=== PATIENT | female | born 1990 | race Caucasian/White ===

== ENCOUNTER 2020-03-12 13:35 | Emergency (ER) | payer OTHER, MEDICAID ==
[~2020-03-12] VITALS: Ht 157.5 cm; Wt 127.0 kg
[2020-03-12] MEDS ORDERED: SERTRALINE HCL50 MG PO (13:55)
[2020-03-12] MEDS ORDERED: WELLBUTRIN SR100 MG PO (13:55)
[2020-03-12 14:22] LABS: ABSOLUTE BASOPHILS 0.1 thou/uL (0.0-0.2); ABSOLUTE EOSINOPHILS 0.2 thou/uL (0.0-0.7); ABSOLUTE LYMPHOCYTES 2.4 thou/uL (0.8-5.3); ABSOLUTE MONOCYTES 0.6 thou/uL (0.0-1.2); ABSOLUTE NEUTROPHILS 5.4 thou/uL (1.6-8.1); EOSINOPHILS 2.7 %; HEMATOCRIT 42.4 % (37.0-47.0); HEMOGLOBIN 14.7 gm/dL (12.0-15.0); LYMPHOCYTES 27.4 %; MCH 30.2 pg (26.0-34.0); MCHC 34.6 g/dL (28.0-37.0); MCV 87.4 fL (80.0-100.0); MONOCYTES 6.9 %; MPV 8.8 fl. (7.2-11.1); NUCLEATED RBCS 0 /100WBC; PLATELET COUNT* 253 thou/uL (150-400); RBC 4.85 mil/uL (4.20-5.00); RDW-CV 14.1 % (10.5-14.5); WBC 8.6 thou/uL (4.0-11.0)
[2020-03-12 14:27] LABS: APTT 25.3 Seconds (25.0-31.3); PROTIME 10.4 Seconds (9.20-11.50)
[2020-03-12 14:28] LABS: CALCIUM 8.4 mg/dL (8.5-10.1); CREATININE 0.9 mg/dL (0.6-1.3); POTASSIUM 3.5 mmol/L (3.5-5.1)
[2020-03-12 14:32] LABS: URINE BILIRUBIN NEGATIVE (Negative); URINE BLOOD 3+ (Negative); URINE CLARITY CLOUDY; URINE COLOR RED; URINE GLUCOSE-RANDOM NEGATIVE (Negative); URINE KETONES NEGATIVE (Negative); URINE LEUKOCYTES-REFLEX NEGATIVE (Negative); URINE NITRITE-REFLEX NEGATIVE (Negative); URINE PROTEIN 1+ (Negative); URINE SPECIFIC GRAVITY 1.015 (1.005-1.030); URINE UROBILINOGEN 0.2 E.U./dl (0.2-1.0)
[2020-03-12 14:38] LABS: ALBUMIN 3.1 g/dL (3.4-5.0); TOTAL BILIRUBIN 0.2 mg/dL (<0.1-1.0); TOTAL PROTEIN 7.7 g/dL (6.4-8.2)
[2020-03-12 14:45] LABS: BACTERIA-REFLEX None Seen /HPF (None Seen); CASTS None Seen /LPF (None Seen); CRYSTALS None Seen /LPF (None Seen); SQUAMOUS >10 Many /LPF (0-3); URINE RBC >20 Many /HPF (0-2); URINE WBC-REFLEX None Seen /HPF (0-5)
[2020-03-12 16:53] VITALS: BP 110/73
== END 2020-03-12 16:53 | disposition home or self-care (01) ==
LOC: M.ERS 13:35
PROVIDERS: Physician Assistant
DX: N83.201 Unspecified ovarian cyst, right side (principal); N93.9 Abnormal uterine and vaginal bleeding, unspecified; R42 Dizziness and giddiness; Z98.51 Tubal ligation status; Z88.6 Allergy status to analgesic agent